=== PATIENT | male | born 1950 | race Caucasian/White ===

== ENCOUNTER 2019-07-31 16:11 | Emergency (ER) | payer OTHER, BC ==
[~2019-07-31] VITALS: Ht 180.3 cm; Wt 150.6 kg
[2019-07-31 16:15] VITALS: BP_SYST 126
[2019-07-31] MEDS ORDERED: NACL 0.9% 1,000 ML IV ONE (16:30)
[2019-07-31] MEDS ORDERED: TAMS-11 PO (17:13)
[2019-07-31] MEDS ORDERED: ASA81 PO (17:13)
[2019-07-31] MEDS ORDERED: SAXA5TAB PO (17:13)
[2019-07-31] MEDS ORDERED: POTA10TA PO (17:13)
[2019-07-31] MEDS ORDERED: ATEN50TA PO (17:13)
[2019-07-31] MEDS ORDERED: OMEP20CA11 PO (17:13)
[2019-07-31] MEDS ORDERED: AMLO5TAB4 PO (17:13)
[2019-07-31] MEDS ORDERED: GLIM4TAB PO (17:13)
[2019-07-31] MEDS ORDERED: spironolactone (17:13)
[2019-07-31] MEDS ORDERED: FENO160 PO (17:13)
[2019-07-31] MEDS ORDERED: METF-510 PO (17:13)
[2019-07-31] MEDS ORDERED: FURO-149 PO (17:13)
[2019-07-31] MEDS ORDERED: ROSU10TA2 PO (17:13)
[2019-07-31] MEDS ORDERED: OLME1TAB42 PO (17:13)
[2019-07-31] MEDS ORDERED: FURO-150 PO (17:13)
[2019-07-31 17:14] LABS: BASOPHILS % (AUTO) 0.5 % (0.0-2.0); EOSINOPHILS # (AUTO) 0.1 K/uL (0.0-0.4); EOSINOPHILS % (AUTO) 1.1 % (0.0-4.0); HEMATOCRIT 41.9 % (36-54); LYMPHOCYTES # (AUTO) 0.8 K/uL (1.0-5.5); LYMPHOCYTES % (AUTO) 11.6 % (20.5-51.5); MEAN CORPUSCULAR HEMOGLOBIN 29 pg (27-31); MEAN CORPUSCULAR HGB CONC 33 % (32-36); MEAN CORPUSCULAR VOLUME 87 fL (79.0-98.0); MONOCYTES # (AUTO) 0.6 K/uL (0.0-1.0); MONOCYTES % (AUTO) 8.3 % (1.7-9.3); NEUTROPHILS # (AUTO) 5.5 K/uL (1.8-7.7); NEUTROPHILS % (AUTO) 78.5 % (40.0-70.0); PLATELET COUNT (AUTO) 175 K/uL (130-430); RED BLOOD CELL COUNT(AUTO) 4.84 MIL/uL (4.2-6.2); RED CELL DISTRIBUTION WIDTH 16.2 % (9.0-15.0)
[2019-07-31 17:36] LABS: CALCIUM 9.4 mg/dL (8.4-11.0); CREATININE 1.9 mg/dL (0.55-1.30); POTASSIUM 4.7 mmol/L (3.5-5.1)
[2019-07-31 17:42] LABS: ALBUMIN 3.4 g/dL (3.4-4.8); TOTAL BILIRUBIN 0.4 mg/dL (0.0-1.0)
[2019-07-31 17:48] LABS: INR 1.1 (0.80-1.20); PROTHROMBIN TIME 10.8 SECS (9.5-12.5)
[2019-07-31 17:49] LABS: BILIRUBIN,URINE NEGATIVE (NEGATIVE); BLOOD, URINE NEGATIVE (NEGATIVE); CLARITY/URINE CLEAR (CLEAR); COLOR,URINE YELLOW (YELLOW); GLUCOSE,URINE NEGATIVE (NEGATIVE); KETONES,URINE NEGATIVE (NEGATIVE); LEUKOCYTE ESTERASE ,URINE NEGATIVE (NEGATIVE); NITRITE, URINE NEGATIVE (NEGATIVE); PROTEIN URINE 2+ (NEGATIVE); UROBILINOGEN,URINE 0.2 (0.2-1.0)
[2019-07-31 18:03] LABS: BACTERIA,URINE RARE /HPF (None Seen); RBC,URINE NONE SEEN /HPF (0-3); WBC,URINE 0-3 /HPF (0-3)
[2019-07-31 18:04] LABS: MUCUS,URINE None Seen /LPF (None Seen)
[2019-07-31 18:46] VITALS: BP_SYST 126
== END 2019-07-31 18:43 | disposition home or self-care (01) ==
LOC: SED 16:11
DX: T21.22XD Burn of second degree of abdominal wall, subsequent encounter (principal); R55 Syncope and collapse; R42 Dizziness and giddiness; E11.9 Type 2 diabetes mellitus without complications; I11.0 Hypertensive heart disease with heart failure; I50.9 Heart failure, unspecified; Z79.84 Long term (current) use of oral hypoglycemic drugs; Z79.899 Other long term (current) drug therapy; X19.XXXD Contact with other heat and hot substances, subsequent encounter
CPT/HCPCS: 36415; 71045; 80053; 81000; 83605; 83880; 84484; 85025; 85610; 85730; 87040; 87086; 93005; 96360; 99284; J7030